=== PATIENT | female | born 1965 | race Caucasian/White ===

== ENCOUNTER 2018-03-04 07:01 | Outpatient (CLI) ==
[2016-10-22 12:24] VITALS: BMI 23.0
== END 2018-03-04 07:02 | disposition home or self-care (01) ==
LOC: LAB 07:01
PROVIDERS: ATTEND Obstetrics & Gynecology
DX: E34.9 Endocrine disorder, unspecified (principal)
CPT/HCPCS: 36415; 82670; 83001; 83002

== ENCOUNTER 2019-03-14 15:35 | Outpatient (CLI) ==
[2016-10-22 12:24] VITALS: BMI 23.0
--- NOTE | 2019-03-14 15:58 | DI ---
EXAM: RIGHT KNEE. HISTORY: Knee pain. FINDINGS: Right knee three-view. No comparison. Bones appear demineralized. There is moderate tri compartment osteoarthritis. No fracture, osteochondral fragmentation or joint effusion. IMPRESSION: 1. Osteoarthritis. No acute radiographic findings.
== END 2019-03-14 15:36 | disposition home or self-care (01) ==
LOC: RAD 15:35
PROVIDERS: ATTEND Family Medicine
DX: M25.561 Pain in right knee (principal)